=== PATIENT | male | born 1990 | race Caucasian/White ===

== ENCOUNTER → 2019-10-08 12:26 | Outpatient (BNVA) | payer OTHER, SELFPAY | PROVIDERS: Visit Provider Specialist | DX: S62.613A Displaced fracture of proximal phalanx of left middle finger, initial encounter for closed fracture (principal); X58.XXXA Exposure to other specified factors, initial encounter | CPT/HCPCS: 73130 ==

== ENCOUNTER 2019-10-08 13:47 | Outpatient (RCR) | payer OTHER, SELFPAY | END 2019-10-16 23:59 | disposition home or self-care (01) | LOC: SOT 13:47 | PROVIDERS: Family Provider Specialist; PCP Specialist; Visit Provider Specialist | DX: S62.603D Fracture of unspecified phalanx of left middle finger, subsequent encounter for fracture with routine healing (principal); X58.XXXD Exposure to other specified factors, subsequent encounter | CPT/HCPCS: 97110; 97140; 97167 ==

== ENCOUNTER 2019-10-17 06:00 | Outpatient (RCR) | payer OTHER, SELFPAY | END 2019-11-16 23:59 | disposition home or self-care (01) | LOC: SOT 06:00 | PROVIDERS: Family Provider Specialist; PCP Specialist; Visit Provider Specialist | DX: S62.643D Nondisplaced fracture of proximal phalanx of left middle finger, subsequent encounter for fracture with routine healing (principal); X58.XXXD Exposure to other specified factors, subsequent encounter | CPT/HCPCS: 97110; 97140; L3925 ==

== ENCOUNTER → 2019-10-22 11:26 | Outpatient (BNVA) | payer OTHER, SELFPAY | PROVIDERS: PCP Specialist; Visit Provider Specialist | DX: T14.8XXA Other injury of unspecified body region, initial encounter (principal); S62.619A Displaced fracture of proximal phalanx of unspecified finger, initial encounter for closed fracture | CPT/HCPCS: 73140 ==

== ENCOUNTER → 2019-11-13 09:10 | Outpatient (BNVA) | payer OTHER, SELFPAY | PROVIDERS: Family Provider Specialist; PCP Specialist; Visit Provider Specialist | DX: S62.613A Displaced fracture of proximal phalanx of left middle finger, initial encounter for closed fracture (principal); X58.XXXA Exposure to other specified factors, initial encounter | CPT/HCPCS: 73140 ==

== ENCOUNTER 2019-11-17 06:00 | Outpatient (RCR) | payer OTHER, SELFPAY | END 2019-12-04 23:00 | disposition home or self-care (01) | LOC: SOT 06:00 | PROVIDERS: PCP Specialist; Visit Provider Specialist | DX: S62.613D Displaced fracture of proximal phalanx of left middle finger, subsequent encounter for fracture with routine healing (principal); X58.XXXD Exposure to other specified factors, subsequent encounter | CPT/HCPCS: 97110 ==

== ENCOUNTER → 2019-12-08 09:35 | Outpatient (BNVA) | payer OTHER, SELFPAY | PROVIDERS: PCP Specialist; Visit Provider Specialist | DX: S62.613D Displaced fracture of proximal phalanx of left middle finger, subsequent encounter for fracture with routine healing (principal); W17.89XD Other fall from one level to another, subsequent encounter | CPT/HCPCS: 73140 ==

== ENCOUNTER 2024-02-20 13:22 | Emergency (ER) | payer OTHER, SELFPAY ==
[2024-02-20 13:26] VITALS: BP 153/97; PULSE 105; RESP 17; TEMP 36.4; O2SAT 97; BMI 24.3
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
[2024-02-20 13:56] VITALS: RESP 17; O2SAT 98
[2024-02-20] MEDS: morphine 4 mg/mL SDV 1 mL IM (13:56)
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
[2024-02-20] MEDS: iohexol 350 mg/mL 500 mL Btl (per mL) IV (14:24)
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
[2024-02-20 15:54] VITALS: RESP 17; O2SAT 99
[2024-02-20] MEDS: morphine 4 mg/mL SDV 1 mL IVP (15:54)
[2024-02-20] MEDS: ondansetron 2 mg/ML SDV 2 mL 4 MG IVP (15:55)
[2024-02-20 16:13] VITALS: BP 141/78; PULSE 99; O2SAT 93
== END 2024-02-20 16:15 | disposition home or self-care (01) ==
PROVIDERS: Emergency Provider Emergency Medicine; PCP Specialist
DX: S42.032A Displaced fracture of lateral end of left clavicle, initial encounter for closed fracture (principal); S42.112A Displaced fracture of body of scapula, left shoulder, initial encounter for closed fracture; V23.49XA Other motorcycle driver injured in collision with car, pick-up truck or van in traffic accident, initial encounter
CPT/HCPCS: 70450; 71045; 71260; 72125; 73030; 73590; 96372; 96374; 96375; 99285; J2270; J2405

== ENCOUNTER → 2024-02-26 08:42 | Outpatient (BNVA) | payer OTHER, SELFPAY | PROVIDERS: PCP Specialist; Visit Provider Student in an Organized Health Care Education/Training Program | DX: S42.002A Fracture of unspecified part of left clavicle, initial encounter for closed fracture (principal); S42.102A Fracture of unspecified part of scapula, left shoulder, initial encounter for closed fracture; V29.99XA Rider (driver) (passenger) of other motorcycle injured in unspecified traffic accident, initial encounter | CPT/HCPCS: 73000 ==

== ENCOUNTER 2024-02-27 10:38 | Outpatient (CLI) | payer OTHER, SELFPAY ==
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
== END 2024-02-27 10:39 | disposition home or self-care (01) ==
LOC: RAD 10:39
PROVIDERS: PCP Specialist; Visit Provider Student in an Organized Health Care Education/Training Program
DX: S42.002A Fracture of unspecified part of left clavicle, initial encounter for closed fracture (principal); S42.102A Fracture of unspecified part of scapula, left shoulder, initial encounter for closed fracture; X58.XXXA Exposure to other specified factors, initial encounter
CPT/HCPCS: 73200